=== PATIENT | female | born 1995 | race American Indian/Alaskan Native ===

== ENCOUNTER 2025-04-11 00:29 | Emergency (ER) | payer MEDICAID ==
[2025-04-11] MEDS: Ketorolac 30 MG/ML SDV IM ONE (01:28)
== END 2025-04-11 02:04 | disposition home or self-care (01) ==
LOC: JP.ED 00:29
DX: R51.9 Headache, unspecified (principal); F17.200 Nicotine dependence, unspecified, uncomplicated; Z91.013 Allergy to seafood; Z79.899 Other long term (current) drug therapy
CPT/HCPCS: 96372; 99283; J1885